=== PATIENT | male | born 1965 | race Caucasian/White ===

== ENCOUNTER 2017-03-11 20:34 | Emergency (ER) | payer OTHER ==
[~2017-03-11] VITALS: Ht 170.2 cm; Wt 83.9 kg
--- NOTE | ~2017-03-11 | CT4 ---
[facility] A Service of [facility] RADIOLOGY TEXT RESULTS PATIENT: RONI BLOCK LOCATION: SED : 67 UNIT #: [id number] AGE: [address]: Anastacia Quigley SEX: M ORDER DR: [id number] [address] [address] [id number] E MR#: [id number] Acc #: [id number] NAME: RONI BLOCK : 1965 SEX: M STUDY DATE/TIME: 03/11/2017 21:56 UNIT: SED ROOM: STUDY DESCRIPTION: CT Abd and Pelv Wo Cont Attending Physician: Anastacia Quigley Pa-C Ordering Physician: Anastacia Quigley Pa-C Primary Care Physician: No Primary Care Physician MEDICAL IMAGING REPORT This report is preliminary unless electronic signature is present. EXAM CT abdomen and pelvis without contrast. INDICATIONS Dysuria today with hematuria. PROCEDURE Unenhanced CT of the abdomen and pelvis. This CT exam was performed with one or more of the following radiation dose reduction techniques: Automatic exposure control, adjustment of mA and/or kV according to patient size, and iterative reconstruction. FINDINGS Included lung bases are clear. There is a 11 mm cyst in the left hepatic lobe. Spleen, adrenal glands, pancreas and gallbladder have an unremarkable unenhanced appearance. Uncomplicated sigmoid diverticula. Appendix is normal. There is no radiodense urinary system calculus or hydronephrosis. Pelvis without contrast: Suspected mass along the left posterolateral aspect of the bladder measuring 2.4 cm, not well seen on this unenhanced study. No radiodense bladder calculus. No aggressive appearing bone lesion. IMPRESSION 1. Suspected bladder mass as detailed above measuring up to 2.4 cm. Recommend correlation with direct visualization. 2. No radiodense urinary system calculus or hydronephrosis. 3. No definitive evidence for metastatic disease in the abdomen or pelvis on this unenhanced study. [facility] A Service of [facility] RADIOLOGY TEXT RESULTS PATIENT: RONI BLOCK LOCATION: SED : 67 UNIT #: [id number] AGE: [address]: Anastacia Quigley PAC SEX: M ORDER DR: Dictated by... Barrington Medeiros M.D. THIS IS AN ELECTRONICALLY VERIFIED REPORT Barrington Medeiros M.D. at 03/12/2017 10:00 PM EED/maikel TD: 03/12/2017 08:36 JOB #: [id number] MEDICAL IMAGING REPORT Page 1 of 1
[2017-03-11] MEDS ORDERED: ZOLOFT PO (20:42)
[2017-03-11 20:59] LABS: URINE APPEARANCE HAZY; URINE BILIRUBIN NEG (NEG); URINE BLOOD 3+ (NEG); URINE COLOR YELLOW; URINE GLUCOSE NEG (NORM); URINE KETONE TRACE (NEG); URINE LEUKOCYTE ESTERASE NEG (NEG); URINE NITRATE NEG (NEG); URINE PROTEIN NEG (NEG); URINE SPECIFIC GRAVITY 1.025 (1.003-1.035); URINE UROBILINOGEN 0.2 MG/DL (NORM)
[2017-03-11 21:01] LABS: MICRO INDICATED? YES
[2017-03-11 21:04] LABS: URINE RBC 100-200 /[HPF] (0-2); URINE WBC 0-2 /[HPF] (0-5)
[2017-03-11 21:07] LABS: URINE BACTERIA NEG (NEG); URINE MUCUS PRESENT; URINE SQUAMOUS EPITHELIAL CELL FEW /[HPF]
[2017-03-11 21:53] LABS: BASOPHIL# 0.1 X10e3 (0-0.3); BASOPHIL% 0.7 % (0-2.5); DIFF IND NO; EOSINOPHIL# 0.9 X10e3 (0-0.7); EOSINOPHIL% 10.6 % (0.0-7.0); LYMPHOCYTE# 2.4 X10e3 (1.0-3.5); LYMPHOCYTE% 27.4 % (17.0-45.0); MEAN CELL VOLUME 97.4 FL (83-96); MEAN CORPUSCULAR HEMOGLOBIN 33.9 PG (28-34); MEAN CORPUSCULAR HGB CONC 34.8 g/dL (30-36); MEAN PLATELET VOLUME 8.2 FL (6.5-11.5); MONOCYTE# 0.6 X10e3 (0-1.0); MONOCYTE% 6.4 % (3.0-12.0); NEUTROPHIL# 4.7 X10e3 (1.5-7.1); NEUTROPHIL% 54.9 % (40-75); PLATELET COUNT 178 X10e3 (140-420); RED BLOOD COUNT 4.42 X10e (3.90-5.60); WHITE BLOOD COUNT 8.6 X10e3 (4.0-10.5)
[2017-03-11 22:07] LABS: BILIRUBIN,TOTAL 0.6 mg/dL (0.2-2.0); BUN/CREATININE RATIO 14.28; CREATININE SERUM 1.4 mg/dL (0.6-1.4); GLOM FILT RATE Estimated 58.2 mL/min (>60); POTASSIUM 3.8 mmol/L (3.5-5.1); PROTEIN TOTAL SERUM 6.8 g/dL (6.0-8.3)
[2017-04-02] MEDS ORDERED: ALLERGY RELIEF10 M6 PO (15:54)
== END 2017-03-11 22:55 | disposition home or self-care (01) ==
LOC: SED 20:34
PROVIDERS: Physician Assistant Medical
DX: R31.9 Hematuria, unspecified (principal); N32.9 Bladder disorder, unspecified
CPT/HCPCS: 36415; 74176; 80053; 81003; 85025; 96361; 96374; 99284; J1885

== ENCOUNTER → 2017-04-07 | Day surgery (SDC) | payer OTHER ==
[~2017-04-07] MED LIST: ALLERGY RELIEF10 M6 PO; ZOLOFT PO
--- NOTE | ~2017-04-07 | OR ---
Unit #: [id number] #: [id number] Patient: RONI BLOCK [id number] [address] [place], [place] [address] [id number] O MR#: [id number] NAME: RONI BLOCK ROOM: Date of Procedure: 04/07/2017 Admission Date: 04/07/2017 Surgeon: Aung Munoz M.D. : 1965 Attending Physician: Aung Munoz M.D. Referring Physician: Aung Munoz M.D. Primary Care Physician: [facility] OPERATIVE REPORT JOB NOTE: CC: [facility] PREOPERATIVE DIAGNOSIS Hematuria and bladder tumor. POSTOPERATIVE DIAGNOSIS Hematuria and bladder tumor. PROCEDURE PERFORMED Cystoscopy and transurethral resection of bladder tumor. ANESTHESIA General. DESCRIPTION OF PROCEDURE After informed consent, he was taken to the operating room, placed under general anesthesia, positioned in lithotomy. His penis and perineum were prepped and draped in the usual sterile fashion. Cystoscopy was performed showing a normal urethra. He had some BPH, slightly elevated bladder neck. The bladder was inspected. He had a large bladder tumor about 2.5 to 3 cm on the left posterolateral wall. The entire bladder was inspected. There were no other tumors or abnormalities. He had normal left and right ureteral orifices. There was efflux of urine from both that was clear. Using the resectoscope loop, the tumor was resected with some temporary paralysis. Hemostasis was achieved using electrocautery. The tumor fragments were irrigated out using a Abebe syringe. The patient will be taken to recovery. Lidocaine jelly was placed inside his urethra for anesthesia. His bladder was drained prior to finishing of the procedure. He will be discharged home and return to see ok as an outpatient. All counts were correct at the end of the procedure. Dictated by... Kim TurnerB/kendelll TD: 04/07/2017 18:50 JOB #: [id number] Unit #: [id number] #: [id number] Patient: RONI BLOCK OPERATIVE REPORT Page 1 of 1 X Aung Munoz MD PROCEDURE OPERATIVE NOTE
--- NOTE | ~2017-04-07 | EKG ---
PATIENT: RONI BLOCK UNIT #: [id number] Ventricular Rate: 62 BPM Atrial Rate: 62 BPM P-R Interval: 144 ms QRS Duration: 86 ms Q-T Interval: 410 ms QTC Calculation(Bezet): 416 ms P [place]: 30 degrees Calculated R [place]: 18 degrees Calculated T [place]: 20 degrees Diagnosis Line: Normal sinus rhythm Diagnosis Line: Normal ECG Diagnosis Line: No previous ECGs available Diagnosis Line: Confirmed by ANISA FELTON MD ([id number]) on 04/07/2017 Diagnosis Line: 6:35:50 PM INTERPRETING MD: PURNIMA ARIZMENDI
== END | disposition home or self-care (01) ==
LOC: CSUR 14:40
DX: C67.4 Malignant neoplasm of posterior wall of bladder (principal); K21.9 Gastro-esophageal reflux disease without esophagitis; F17.210 Nicotine dependence, cigarettes, uncomplicated; Z90.89 Acquired absence of other organs
CPT/HCPCS: 88307; 93005; J0330; J0690; J2250; J2405; J3010